=== PATIENT | male | born 1945 | race Caucasian/White ===

== ENCOUNTER 2016-07-12 21:21 | Emergency (ER) | payer MEDICARE, OTHER ==
[2016-07-12 22:07] LABS: URINE LEUKOCYTE ESTERASE POSITIVE (NEG); URINE PH 6.5 (5.0-8.0); URINE PROTEIN MODERATE (NEG); URINE SPECIFIC GRAVITY 1.015 (1.003-1.030)
[2016-07-12 22:08] LABS: URINE APPEARANCE CLOUDY; URINE BILIRUBIN NEGATIVE (NEG); URINE BLOOD LARGE (NEG); URINE COLOR YELLOW; URINE GLUCOSE (UA) MODERATE (NEG); URINE KETONE NEGATIVE (NEG); URINE NITRITE NEGATIVE (NEG)
[2016-07-12 22:20] LABS: URINE EPITHELIAL CELLS 0-1 /[HPF] (0-10); URINE RBC 55-60 /[HPF] (0-5)
[2016-07-12] MEDS ORDERED: RANITIDINE HCL150 M3 PO (22:26)
[2016-07-12] MEDS ORDERED: GLUCOPHAGE1000 M1 PO (22:26)
[2016-07-12] MEDS ORDERED: MINERIN CREME454 G1 TP (22:26)
[2016-07-12] MEDS ORDERED: GLIPIZIDE10 M2 PO (22:27)
[2016-07-12] MEDS ORDERED: OMEPRAZOLE20 M4 PO (22:28)
[2016-07-12] MEDS ORDERED: ACTOS15 M1 PO (22:28)
[2016-07-12 22:29] LABS: BASO % 0.3 % (0-2); EOS % 1.5 % (0-7); EOSINOPHIL ABSOLUTE COUNT 0.1 tho/cmm (0.0-0.7); HCT-HEMATOCRIT 38.6 % (36.0-53.5); HGB-HEMOGLOBIN 13.3 gm/dl (13.5-17.0); IMMATURE GRANULOCYTES ABSOLUTE 0.02 tho/cmm (0-0.03); IMMATURE GRANULOCYTES PERCENT 0.2 % (0-0.3); LYMPH % 28.3 % (20-45); LYMPH ABSOLUTE COUNT 2.5 tho/cmm (0.8-4.5); MCH (MEAN CORPUSCULAR HGB) 29.2 pg (28.0-32.0); MCHC MEAN CORPUSCULAR HGB CONC 34.5 % (32.0-36.0); MCV (MEAN CELL VOLUME) 84.8 fl (82.0-96.0); MEAN PLATELET VOLUME 9.8 cmc (9.4-12.4); MONO % 9.4 % (0-12); MONOCYTE ABSOLUTE COUNT 0.8 tho/cmm (0.0-1.2); NEUTROPHIL ABSOLUTE COUNT 5.3 tho/cmm (1.6-8.0); NEUTROPHIL-AUTOMATED 5.3 tho/cmm (1.6-8.0); NEUTROPHILS % 60.3 % (40-80); PLATELET COUNT 212 tho/cmm (150-450); RED BLOOD COUNT 4.55 mil/cmm (4.40-5.70); RED CELL DISTRIBUTION WIDTH 13.8 % (12.4-16.4); WHITE BLOOD COUNT 8.7 tho/cmm (4.0-10.0)
[2016-07-12] MEDS ORDERED: NORCO 5-325 TA1 EACH PO (22:29)
[2016-07-12] MEDS ORDERED: PRINIVIL10 M1 PO (22:29)
[2016-07-12] MEDS ORDERED: FLOMAX0.4 M1 PO (22:30)
[2016-07-12] MEDS ORDERED: NEURONTIN300 M1 PO (22:30)
[2016-07-12] MEDS ORDERED: AMITRIPTYLINE100 M1 PO (22:30)
[2016-07-12] MEDS ORDERED: ZOCOR80 M1 PO (22:31)
[2016-07-12] MEDS ORDERED: TRIAMCINOLONE A15 G2 TP (22:31)
[2016-07-12 22:37] LABS: ANION GAP 12 mmol/L (0-20); BLOOD UREA NITROGEN 11 mg/dl (6-24); CALCIUM 9.3 mg/dl (8.5-10.5); CARBON DIOXIDE-VENOUS 28 mmol/L (22-32); CHLORIDE 100 mmol/l (96-110); CREATININE 0.95 mg/dl (0.60-1.30); GLUCOSE 153 mg/dL (70-110); POTASSIUM 4.1 mmol/L (3.7-5.1); SODIUM 136 mmol/L (135-145); eGFR VALUE FOR BLACK >90 mL/Min
[2016-07-12] MEDS ORDERED: NORCO 5/3251 TAB PO (23:13)
== END 2016-07-12 23:25 ==
LOC: EDMED 21:21
PROVIDERS: Emergency Medicine
DX: N20.2 Calculus of kidney with calculus of ureter (principal); I10 Essential (primary) hypertension; E11.9 Type 2 diabetes mellitus without complications; E78.5 Hyperlipidemia, unspecified; F17.210 Nicotine dependence, cigarettes, uncomplicated
CPT/HCPCS: J1885; J2405; J7030